=== PATIENT | female | born 2000 | race Caucasian/White ===

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

== ENCOUNTER 2019-02-17 02:16 | Inpatient (IN) | payer SELFPAY ==
[2019-02-17 03:31] LABS: Basophils % (Auto) 0.5 % (0.0-1.8); Eosinophils # (Auto) 0.3 K/mm3 (0.0-0.4); Eosinophils % (Auto) 4.1 % (0.0-4.3); Hematocrit 39.6 % (30.3-42.9); Hemoglobin 13.1 gm/dl (10.1-14.3); Lymphocytes # (Auto) 1.5 K/mm3 (1.2-5.4); Lymphocytes % (Auto) 18.5 % (13.4-35.0); Mean Corpuscular HGB Conc 33 % (30-34); Mean Corpuscular Volume 87 fl (79-97); Monocytes # (Auto) 0.9 K/mm3 (0.0-0.8); Monocytes % (Auto) 10.9 % (0.0-7.3); Platelet Count 221 K/mm3 (140-440); Red Blood Count 4.58 M/mm3 (3.65-5.03)
[2019-02-17 03:32] LABS: Bilirubin,Urine NEG (Negative); Blood,Urine NEG (Negative); Calcium Oxalate Crystals,Urine 3+; Color,Urine Yellow (Yellow); Mucus,Urine 3+ /HPF; Protein,Urine <15 mg/dL mg/dL (Negative); Urobilinogen,Urine < 2.0 mg/dL (<2.0)
[2019-02-17 03:54] LABS: Alanine Aminotransferase 8 units/L (7-56); Albumin 4.4 g/dL (3.9-5); BUN/Creatinine Ratio 10; Blood Urea Nitrogen 8 mg/dL (7-17); Calcium 8.6 mg/dL (8.4-10.2); Hemolysis Index 5
[2019-02-17] MEDS ORDERED: MORPHINE IV ONE (04:27)
[2019-02-17] MEDS ORDERED: ZOFRAN IV ONE (04:27)
--- NOTE | 2019-02-17 05:24 | Emergency Department Report ---
ED Abdominal Pain HPI - General Chief Complaint: Abdominal Pain Stated Complaint: ABD PAIN Time Seen by Provider: 02/17/19 04:15 Source: patient Mode of arrival: Ambulatory Limitations: No Limitations - History of Present Illness Initial Comments: Patient is a A1 18 yo AA female with no past medical history who presents to the ED with c/o acute onset persistent severe RLQ abdominal pain that radiates diffusely from the RLQ to the suprapubic and LLQ area with nausea and vomiting x 2 days, worse in the last 6 hours. Patient denies fever, chills, dizziness, diarrhea, dysuria, vaginal bleeding, vaginal discharge, low back pain, dyspareunia, headache, chest pain, vision changes or cough. MD Complaint: abdominal pain, other (nausea) -: Sudden, days(s) (2) Location: RLQ, suprapubic, R flank Radiation: LLQ, RLQ, suprapubic Severity scale (0 -10): 6 Quality: cramping, aching, sharp Improves With: nothing Worsens With: nothing Associated Symptoms: denies other symptoms, nausea. denies: vomiting, diarrhea, fever, chills, constipation, dysuria, hematemesis, hematochezia, melena, hematuria, anorexia, syncope - Related Data LMP Date: 02/04/19 Allergies Allergy/AdvReac Type Severity Reaction Status Date / Time No Known Allergies Allergy Unverified 12/24/16 13:43 ED Review of Systems ROS: Stated complaint: ABD PAIN Other details as noted in HPI Constitutional: denies: chills, fever Eyes: denies: eye pain, eye discharge, vision change ENT: denies: ear pain, throat pain Respiratory: denies: cough, shortness of breath, wheezing Cardiovascular: denies: chest pain, palpitations Endocrine: no symptoms reported Gastrointestinal: abdominal pain (lower abdomen), nausea, vomiting. denies: diarrhea Genitourinary: denies: urgency, dysuria, discharge Musculoskeletal: denies: back pain, joint swelling, arthralgia Skin: denies: rash, lesions Neurological: denies: headache, weakness, paresthesias Psychiatric: denies: anxiety, depression Hematological/Lymphatic: denies: easy bleeding, easy bruising ED Past Medical Hx - Past Medical History Previous Medical History?: Yes Hx Asthma: Yes - Surgical History Past Surgical History?: No - Social History Smoking Status: Never Smoker Substance Use Type: Marijuana ED Physical Exam - General Limitations: No Limitations General appearance: alert, in no apparent distress - Head Head exam: Present: atraumatic, normocephalic, normal inspection - Eye Eye exam: Present: normal appearance, PERRL, EOMI. Absent: scleral icterus, conjunctival injection, nystagmus, periorbital swelling, periorbital tenderness Pupils: Present: normal accommodation - ENT ENT exam: Present: normal exam, normal orophraynx, mucous membranes moist, TM's normal bilaterally, normal external ear exam - Neck Neck exam: Present: normal inspection, full ROM. Absent: tenderness, meningismus, lymphadenopathy, thyromegaly - Respiratory Respiratory exam: Present: normal lung sounds bilaterally. Absent: respiratory distress, wheezes, rales, rhonchi, stridor, chest wall tenderness, accessory muscle use, decreased breath sounds, prolonged expiratory - Cardiovascular Cardiovascular Exam: Present: regular rate, normal rhythm, normal heart sounds. Absent: systolic murmur, diastolic murmur, rubs, gallop - GI/Abdominal GI/Abdominal exam: Present: soft, tenderness (diffuse lower abdominal tenderness, no ), normal bowel sounds. Absent: guarding, rebound, hyperactive bowel sounds, hypoactive bowel sounds, organomegaly - Rectal Rectal exam: Present: deferred - Extremities Exam Extremities exam: Present: normal inspection, full ROM, normal capillary refill - Back Exam Back exam: Present: normal inspection, full ROM. Absent: tenderness, CVA tenderness (R), CVA tenderness (L), muscle spasm, paraspinal tenderness, vertebral tenderness - Neurological Exam Neurological exam: Present: alert, oriented X3, CN II-XII intact, normal gait, reflexes normal - Psychiatric Psychiatric exam: Present: normal affect, normal mood - Skin Skin exam: Present: warm, dry, intact, normal color. Absent: rash ED Course Vital Signs 02/17/19 02/17/19 02/17/19 02:25 02:40 04:24 Temperature 98.5 F 98.5 F 98.2 F Pulse Rate 86 86 63 Respiratory 18 18 16 Rate Blood Pressure 121/61 121/61 Blood Pressure 120/53 [Left] O2 Sat by Pulse 99 98 100 Oximetry - Reevaluation(s) Reevaluation #1: 02/17/19 06:51 Patient is alert and oriented 3 and is not in any distress. Lab test results are unremarkable. Patient was treated for pain and nausea in the ED and also received 1 L normal saline IV bolus. Abdomen: A CT scan with contrast shows an enhancing tubular structure in the right lower quadrant, suspected to be acute appendicitis. A small amount of free fluid is seen in the pelvis. On reevaluation, patient's pain is well controlled on medications. I paged and discussed with the general surgeon representative personal service Dr. Lemus at 0648 hrs, and he advised that the patient be admitted to the hospital by the hospitalist physician representative personal service, and at the [facility] consult and the patient later this morning. I also paged and discussed the patient's history, physical exam findings, laboratory results and imaging report with the hospitalist physician representative personal service Dr. Santillan admitted the patient to the hospital, but passed the patient over to the morning team to complete the admission process. Patient was started on Zosyn 3.375g IV awaiting the completion of the admission process. ED Medical Decision Making - Lab Data Result diagrams: 02/17/19 03:05 02/17/19 03:05 - Radiology Data Radiology results: report reviewed, image reviewed Abdomen-Pelvis CT scan w/contrast shows an enhancing tubular structure in the right lower quadrant that has the appearance of an abnormal appendix. There is also a small amount of free fluid seen in the pelvis. These findings are consistent with acute appendicitis. 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 Lab test results are unremarkable. Patient was treated for pain and nausea in the ED and also received 1 L normal saline IV bolus. Abdomen: A CT scan with contrast shows an enhancing tubular structure in the right lower quadrant, suspected to be acute appendicitis. A small amount of free fluid is seen in the pelvis. On reevaluation, patient's pain is well controlled on medications. I paged and discussed with the general surgeon representative personal service Dr. Lemus at 0648 hrs, and he advised that the patient be admitted to the hospital by the hospitalist physician representative personal service, and at the [facility] consult and the patient later this morning. I also paged and discussed the patient's history, physical exam findings, laboratory results and imaging report with the hospitalist physician representative personal service Dr. Santillan admitted the patient to the hospital, but passed the patient over to the morning team to complete the admission process. Patient was started on Zosyn 3.375g IV awaiting the completion of the admission process. - Differential Diagnosis acute appendicitis, kidney stones, acute PID, Ovarian cysts, Acute UTI Critical care attestation.: If time is entered above; I have spent that time in minutes in the direct care of this critically ill patient, excluding procedure time. ED Disposition Clinical Impression: Acute bilateral lower abdominal pain Acute appendicitis Qualifiers: Acute appendicitis type: unspecified acute appendicitis type Qualified Code(s): K35.80 - Unspecified acute appendicitis Disposition: OP ADMIT IP TO THIS HOSP Is pt being admited?: Yes Does the pt Need Aspirin: No Condition: Stable Instructions: Abdominal Pain (ED) Additional Instructions: Take medications with food, drink plenty of fluids and follow up with your Primary Care Physician or [facility] Interventionist Physician in 5-7 days for reevaluation. Return to the ED immediately if symptoms get worse. Time of Disposition: 06:56 Print Language: FAROESE
--- NOTE | 2019-02-17 06:09 | Cat Scan Report ---
CT abdomen pelvis w con INDICATION / CLINICAL INFORMATION: Pain in right lower abdomen for a few days. Worse tonight. Pain woke her from sleep. TECHNIQUE: All CT scans at this location are performed using CT dose reduction for ALARA by means of automated e xposure control. COMPARISON: None available. FINDINGS: Lower lungs are clear. ABDOMEN: The gallbladder is contracted. No biliary dilatation. The liver, spleen and pancreas are normal. Right kidney is normal. 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 No hydronephrosis. The small bowel is normal. Pelvis: There is an enhancing tubular structure in the right lower quadrant that has the appearance of an abn ormal appendix. A small amount of free fluid is seen in the pelvis. IMPRESSION: 1. Acute appendicitis. 2. Pelvic left kidney. Signer Name: Chin Sahni MD Signed: 02/17/2019 6:05 AM Workstation Name: [id number]
[2019-02-17] MEDS ORDERED: NACL 0.9% 1000 ML 1,000 ML IV ONE (06:29)
[2019-02-17] MEDS ORDERED: ZOSYN/NS 3.375GM/50ML 3.375 GM/50 ML BAG IV ONE (07:00)
[2019-02-17] MEDS ORDERED: ZOFRAN IV PRN (09:16)
--- NOTE | 2019-02-17 10:09 | Anesthesia Day of Surgery ---
Anesthesia Day of Surgery - Day of Surgery Patient Examined: Yes Patient H&P Reviewed: Yes Patient is NPO: Yes
--- NOTE | 2019-02-17 10:10 | Anesthesia Consultation ---
Anesthesia Consult and Med Hx Date of service: 02/17/19 - Airway Anesthetic Teeth Evaluation: Good, Partials ROM Head & Neck: Adequate Mental/Hyoid Distance: Adequate Mallampati Class: Class I Intubation Access Assessment: Good - Pre-Operative Health Status ASA Pre-Surgery Classification: ASA2, Emergency Proposed Anesthetic Plan: General - Pulmonary Hx Asthma: Yes (Inhaler PRN; last attack one year ago; Exercise-induced) COPD: No Hx Pneumonia: No - Endocrine Hx End Stage Renal Disease: No - Hematic Hx Sickle Cell Disease: No
[2019-02-17] MEDS ORDERED: TYLENOL PO NR (10:11)
--- NOTE | 2019-02-17 10:18 | Consultation ---
History of Present Illness Consult date: 02/17/19 Reason for consult: abdominal pain Requesting physician: SELINA MOSES Chief complaint: RLQ pain - History of present illness History of present illness: 18yo F presents to ED with 2 day history of RLQ pain, N/C. No F/V. Has been getting worse. Unable to tolerate diet. CT showed appendicitis. Gen Surg consulted for this issue. Past History Past Medical History: other (asthma) Past Surgical History: No surgical history Social history: single, other (marijuana). denies: alcohol abuse Family history: no significant family history Medications and Allergies Allergies Allergy/AdvReac Type Severity Reaction Status Date / Time No Known Allergies Allergy Unverified 12/24/16 13:43 Home Medications Medication Instructions Recorded Confirmed Last Taken Type No Known Home Medications [No 02/17/19 02/17/19 Unknown History Reported Home Medications] Active Meds: Active Medications Acetaminophen (Tylenol) 650 mg PO ONCE NR Stop: 02/17/19 16:00 Celecoxib (Celebrex) 200 mg PO PREOP NR Stop: 02/17/19 23:59 Fentanyl (Sublimaze) 50 mcg IV Q5MIN PRN PRN Reason: Pain , Severe (7-10) Gabapentin (Neurontin) 300 mg PO PREOP NR Stop: 02/17/19 23:59 Sodium Chloride (Nacl 0.9% 1000 Ml) 1,000 mls @ 100 mls/hr IV DIRECT MONIKA Ondansetron HCl (Zofran) 4 mg IV ONCE PRN PRN Reason: Nausea And Vomiting Review of Systems - Constitutional chills, no fever, no night sweats - Cardiovascular no chest pain, no shortness of breath - Respiratory no cough - Gastrointestinal abdominal pain, nausea, loss of appetite, dyspepsia/bloating, no vomiting, no change in bowel habits, no hematemesis, no coffee ground emesis, no BRBPR, no melena, no hematochezia - Muskuloskeletal no low back pain - Integumentary no rash, no sores, no wounds Exam Vital Signs Temp Pulse Resp BP Pulse Ox 98.5 F 86 18 121/61 99 02/17/19 02:25 02/17/19 02:25 02/17/19 02:25 02/17/19 02:25 02/17/19 02:25 - General physical appearance Positive: no distress, no pain, other (healthy appearing young female. pleasant) - Eyes Positive: normal occular movement - Respiratory Positive: normal expansion, normal respiratory effort, clear to auscultation - Cardiovascular Rhythm: regular - Abdomen Abdomen: Present: soft, tender (in RLQ. +mild Rovsing's), bowel sounds hypoa ctive. Absent: distended, guarding, rigid, wound, surgical scars - Integumentary no rash, no growths, no abnormal pigmentation - Neurologic Neurologic: alert and oriented to time, place and person, motor strength and sensation are grossly intact - Psychiatric Psychiatric: appropriate mood/affect, intact judgment & insight, cooperative Results - Labs 02/17/19 03:05 02/17/19 03:05 Abnormal lab results 02/17/19 Range/Units 03:05 RDW 13.0 L (13.2-15.2) % [place] % (Auto) 10.9 H (0.0-7.3) % [place] # 0.9 H (0.0-0.8) K/mm3 Diabetes panel 02/17/19 Range/Units 03:05 Sodium 140 (137-145) mmol/L Potassium 3.7 (3.6-5.0) mmol/L Chloride 103.4 (98-107) mmol/L Carbon Dioxide 27 (22-30) mmol/L BUN 8 (7-17) mg/dL Creatinine 0.8 (0.7-1.2) mg/dL Glucose 97 (65-100) mg/dL Calcium 8.6 (8.4-10.2) mg/dL AST 18 (5-40) units/L ALT 8 (7-56) units/L Alkaline Phosphatase 74 (35-129) units/L Total Protein 6.9 (6.3-8.2) g/dL Albumin 4.4 (3.9-5) g/dL Calcium panel 02/17/19 Range/Units 03:05 Calcium 8.6 (8.4-10.2) mg/dL Albumin 4.4 (3.9-5) g/dL Pituitary panel 02/17/19 Range/Units 03:05 Sodium 140 (137-145) mmol/L Potassium 3.7 (3.6-5.0) mmol/L Chloride 103.4 (98-107) mmol/L Carbon Dioxide 27 (22-30) mmol/L BUN 8 (7-17) mg/dL Creatinine 0.8 (0.7-1.2) mg/dL Glucose 97 (65-100) mg/dL Calcium 8.6 (8.4-10.2) mg/dL Adrenal panel 02/17/19 Range/Units 03:05 Sodium 140 (137-145) mmol/L Potassium 3.7 (3.6-5.0) mmol/L Chloride 103.4 (98-107) mmol/L Carbon Dioxide 27 (22-30) mmol/L BUN 8 (7-17) mg/dL Creatinine 0.8 (0.7-1.2) mg/dL Glucose 97 (65-100) mg/dL Calcium 8.6 (8.4-10.2) mg/dL Total Bilirubin 0.30 (0.1-1.2) mg/dL AST 18 (5-40) units/L ALT 8 (7-56) units/L Alkaline Phosphatase 74 (35-129) units/L Total Protein 6.9 (6.3-8.2) g/dL Albumin 4.4 (3.9-5) g/dL - Imaging CT scan - abdomen: report reviewed, image reviewed CT scan - pelvis: report reviewed, image reviewed Assessment and Plan - Patient Problems (1) Acute appendicitis Current Visit: Yes Status: Acute Qualifiers: Acute appendicitis type: unspecified acute appendicitis type Qualified Cod e(s): K35.80 - Unspecified acute appendicitis Plan to address problem: Pt stable. Exam, hx, and CT are consistent with appendicitis. Discussed surgical vs medical option. Pros and cons discussed. Pt elected surgical tx. Procedure, risks, benefits discussed. All questions answered. Consent obtained. Proceed to OR today. Please call with questions. time=30min
[2019-02-17] MEDS ORDERED: TYLENOL ONE (10:21)
[2019-02-17] MEDS ORDERED: NEURONTIN ONE (10:23)
[2019-02-17] MEDS ORDERED: DIPRIVAN 10 MG/ML IV ONE (10:40)
[2019-02-17] MEDS ORDERED: SUBLIMAZE ONE ×2 (10:42→12:16)
[2019-02-17] MEDS ORDERED: LACTATED RINGERS 0 ML ONE (10:47)
[2019-02-17] MEDS ORDERED: ZEMURON IV ONE (10:54)
[2019-02-17] MEDS ORDERED: XYLOCAINE 1%/ EPI 1:100,000 INFILTRATI ONE (10:58)
[2019-02-17] MEDS ORDERED: NEURONTIN PO NR (11:00)
[2019-02-17] MEDS ORDERED: XYLOCAINE 1% 20 mL INFILTRATI ONE (11:05)
[2019-02-17] MEDS ORDERED: MARCAINE-EPI 0.25%-1:200,000 INFILTRATI ONE (11:05)
[2019-02-17] MEDS ORDERED: ANCEF ONE (11:44)
--- NOTE | 2019-02-17 11:46 | Post Operative Note ---
Date of procedure: 02/17/19 (dictation:[id number]) Pre-op diagnosis: acute appendicitis Post-op diagnosis: same Findings: enlarged, mildly inflamed appendix. No evidence of perforation. surrounding organs normal Procedure: lap appy IVF 1700cc UOP 500cc EBL ~20cc Anesthesia: LETICIA Surgeon: KRIS HEARD Filling Mixer: LINDSAY MORA Estimated blood loss: minimal Pathology: list (appendix) Specimen disposition: to lab Condition: stable Disposition: PACU
--- NOTE | 2019-02-17 11:49 | History and Physical Report ---
History of Present Illness Date of examination: 02/17/19 Date of admission: 02/17/19 07:38 Chief complaint: abd pain History of present illness: Patient is a A1 18 yo AA female with no past medical history who presents to the ED with c/o acute onset persistent severe RLQ abdominal pain that radiates diffusely from the RLQ to the suprapubic and LLQ area with nausea and vomiting x 2 days, worse in the last 6 hours [facility]. Patient denied fever, chills, dizziness, diarrhea, dysuria, vaginal bleeding, vaginal discharge, low back pain, dyspareunia, headache, chest pain, vision changes or cough. Past History Past Medical History: other (asthma) Past Surgical History: No surgical history Social history: single, other (marijuana). denies: alcohol abuse Family history: no significant family history Medications and Allergies Allergies Allergy/AdvReac Type Severity Reaction Status Date / Time No Known Allergies Allergy Unverified 12/24/16 13:43 Home Medications Medication Instructions Recorded Confirmed Last Taken Type No Known Home Medications [No 02/17/19 02/17/19 Unknown History Reported Home Medications] Active Meds: Active Medications Acetaminophen (Tylenol) 650 mg PO ONCE NR Stop: 02/17/19 16:00 Last Admin: 02/17/19 10:24 Dose: 650 mg Documented by: Acetaminophen/Hydrocodone Bitart ([place] 5/325) 2 each PO Q6H PRN PRN Reason: Pain, Moderate (4-6) Celecoxib (Celebrex) 200 mg PO PREOP NR Stop: 02/17/19 23:59 Last Admin: 02/17/19 10:25 Dose: 200 mg Documented by: Fentanyl (Sublimaze) 50 mcg IV Q5MIN PRN PRN Reason: Pain , Severe (7-10) Gabapentin (Neurontin) 300 mg PO PREOP NR Stop: 02/17/19 23:59 Last Admin: 02/17/19 10:24 Dose: 300 mg Documented by: Sodium Chloride (Nacl 0.9% 1000 Ml) 1,000 mls @ 100 mls/hr IV DIRECT MONIKA Morphine Sulfate (Morphine) 2 mg IV Q3H PRN PRN Reason: Pain, Moderate (4-6) Ondansetron HCl (Zofran) 4 mg IV ONCE PRN PRN Reason: Nausea And Vomiting Review of Systems All systems: negative Exam - Constitutional Vitals: Temp Pulse Resp BP Pulse Ox 98.8 F 70 15 123/49 100 02/17/19 08:50 02/17/19 08:50 02/17/19 10:25 02/17/19 08:50 02/17/19 08:50 General appearance: Present: no acute distress, well-nourished - EENT Eyes: Present: PERRL ENT: hearing intact, clear oral mucosa - Neck Neck: Present: supple, normal ROM - Respiratory Respiratory effort: normal Respiratory: bilateral: CTA - Cardiovascular Heart Sounds: Present: S1 & S2. Absent: rub, click - Extremities Extremities: pulses symmetrical, No edema Peripheral Pulses: within normal limits - Abdominal General gastrointestinal: Present: soft, non-tender, tender, normal bowel sounds Localized gastrointestinal: tender: RLQ Female genitourinary: Present: normal - Integumentary Integumentary: Present: clear, warm, dry - Musculoskeletal Musculoskeletal: gait normal, strength equal bilaterally - Psychiatric Psychiatric: appropriate mood/affect, intact judgment & insight - Neurologic Neurologic: CNII-XII intact, moves all extremities Results - Labs CBC & Chem 7: 02/17/19 03:05 02/17/19 03:05 Labs: Laboratory Last Values WBC 8.3 K/mm3 (4.5-11.0) 02/17/19 03:05 RBC 4.58 M/mm3 (3.65-5.03) 02/17/19 03:05 Hgb 13.1 gm/dl (10.1-14.3) 02/17/19 03:05 Hct 39.6 % (30.3-42.9) 02/17/19 03:05 MCV 87 fl (79-97) 02/17/19 03:05 MCH 29 pg (28-32) 02/17/19 03:05 MCHC 33 % (30-34) 02/17/19 03:05 RDW 13.0 % (13.2-15.2) L 02/17/19 03:05 Plt Count 221 K/mm3 (140-440) 02/17/19 03:05 Lymph % (Auto) 18.5 % (13.4-35.0) 02/17/19 03:05 [place] % (Auto) 10.9 % (0.0-7.3) H 02/17/19 03:05 Eos % (Auto) 4.1 % (0.0-4.3) 02/17/19 03:05 Baso % (Auto) 0.5 % (0.0-1.8) 02/17/19 03:05 Lymph # 1.5 K/mm3 (1.2-5.4) 02/17/19 03:05 [place] # 0.9 K/mm3 (0.0-0.8) H 02/17/19 03:05 Eos # 0.3 K/mm3 (0.0-0.4) 02/17/19 03:05 Baso # 0.0 K/mm3 (0.0-0.1) 02/17/19 03:05 Seg Neutrophils % 66.0 % (40.0-70.0) 02/17/19 03:05 Seg Neutrophils # 5.5 K/mm3 (1.8-7.7) 02/17/19 03:05 Sodium 140 mmol/L (137-145) 02/17/19 03:05 Potassium 3.7 mmol/L (3.6-5.0) 02/17/19 03:05 Chloride 103.4 mmol/L (98-107) 02/17/19 03:05 Carbon Dioxide 27 mmol/L (22-30) 02/17/19 03:05 13 mmol/L 02/17/19 03:05 BUN 8 mg/dL (7-17) 02/17/19 03:05 0.8 mg/dL (0.7-1.2) 02/17/19 03:05 Estimated GFR > 60 ml/min 02/17/19 03:05 10 % 02/17/19 03:05 Glucose 97 mg/dL (65-100) 02/17/19 03:05 Calcium 8.6 mg/dL (8.4-10.2) 02/17/19 03:05 0.30 mg/dL (0.1-1.2) 02/17/19 03:05 AST 18 units/L (5-40) 02/17/19 03:05 ALT 8 units/L (7-56) 02/17/19 03:05 74 units/L (35-129) 02/17/19 03:05 6.9 g/dL (6.3-8.2) 02/17/19 03:05 4.4 g/dL (3.9-5) 02/17/19 03:05 1.8 % 02/17/19 03:05 HCG, Qual Negative (Negative) 02/17/19 04:35 Yellow (Yellow) 02/17/19 02:40 Slightly-cloudy (Clear) 02/17/19 02:40 6.0 (5.0-7.0) 02/17/19 02:40 Ur Specific [place] 1.018 (1.003-1.030) 02/17/19 02:40 <15 mg/dl mg/dL (Negative) 02/17/19 02:40 Neg mg/dL (Negative) 02/17/19 02:40 Tr mg/dL (Negative) 02/17/19 02:40 Neg (Negative) 02/17/19 02:40 Neg (Negative) 02/17/19 02:40 Neg (Negative) 02/17/19 02:40 < 2.0 mg/dL (<2.0) 02/17/19 02:40 Ur Leukocyte Esterase Neg (Negative) 02/17/19 02:40 2.0 /HPF (0.0-6.0) 02/17/19 02:40 4.0 /HPF (0.0-6.0) 02/17/19 02:40 U Epithel Cells (Auto) 3.0 /HPF (0-13.0) 02/17/19 02:40 Calcium Oxalate Crystal 3+ 02/17/19 02:40 3+ /HPF 02/17/19 02:40 Assessment and Plan Assessment and plan: Acute appendicitis. Exam, hx, and CT are consistent with appendicitis. Patient to the OR for surgery. Pain control postoperatively. Advance diet per surgery recommendations. Asthma. Stable.
[2019-02-17] MEDS ORDERED: LACTATED RINGERS 1,000 ML ONE (11:51)
[2019-02-17] MEDS ORDERED: XYLOCAINE MPF 2% ONE (11:51)
[2019-02-17] MEDS ORDERED: ZOFRAN ONE (12:00)
[2019-02-17] MEDS ORDERED: DECADRON ONE (12:00)
[2019-02-17] MEDS: SUBLIMAZE IV PRN ×2 (12:16→12:35)
[2019-02-17] MEDS: NACL 0.9% 1000 ML 1,000 ML IV SCH ×2 (13:24→20:21)
[2019-02-17] MEDS: MORPHINE IV PRN ×4 (14:09→23:36)
--- NOTE | 2019-02-17 16:25 | Post Anesthesia Evaluation ---
- Post Anesthesia Evaluation Patient Participated: Yes Airway Patent: Yes Stable Respiratory Function: Yes Nausea/Vomiting: No Temp > 96.8F: Yes Pain Manageable: Yes Adequeate Hydration: Yes Anesthesia Complications: No Block Receding Appropriately: Not Applicable Patient on Ventilator: No
--- NOTE | 2019-02-17 22:04 | Operative Report ---
PREOPERATIVE DIAGNOSIS: Acute appendicitis. POSTOPERATIVE DIAGNOSIS: Acute appendicitis. PROCEDURE: Laparoscopic appendectomy. ATTENDING SURGEON: Valencia Lemus M.D. DINING HOST: Dr. Beckman. ANESTHESIA: General. ESTIMATED BLOOD LOSS: Minimal, less than 20 mL. FLUIDS: 1700 mL. URINE OUTPUT: 500 mL. FINDINGS: Enlarged mildly inflamed appendix, no evidence of perforation. Surrounding bowel appeared completely normal. No other abnormalities were identified. SPECIMENS: Appendix. DRAINS: None. COMPLICATIONS: Stable, transferred to Recovery Room. INDICATIONS: This is a 18-year-old female who presented to the Emergency Room with 2-day history of abdominal pain, nausea and chills. Evaluation revealed evidence of acute appendicitis assessed by need for laparoscopic appendectomy. Procedure, risks and benefits were explained to the patient. Risks included but were not limited to infection, bleeding, pain, injury to surrounding structures, possible need for open surgery, possible need for further procedures in the future. The patient understood and consented. OPERATIVE NOTE: The patient was brought to the operating room and placed on the table in supine position. After adequate general anesthesia was established, the patient was prepped and draped in the usual sterile fashion. Antibiotics had been given. SCDs were in place. Time-out was called. I began by placing a Veress needle in the left upper quadrant. I was able to insufflate in the first attempt. Using an Optiview technique, I placed a 5 mm port in the left lower quadrant. I was able to enter the peritoneal cavity safely. There was no injury to the underlying structures. At the Veress needle site, there was some air that infiltrated under the omentum, but otherwise there was no evidence of any injury. Veress needle was removed. I placed a 12 mm port at the base of the umbilicus hoping to hide the incision there and then another 5 mm port in the suprapubic area in the midline. Both of these were done under direct vision. All sites had been anesthetized with 0.5% Marcaine and 1% lidocaine mix. We began by identifying the appendix. I took down the mesoappendix and the surrounding attachments with the LigaSure device. Once the base was completely dissected out, we transected it with a laparoscopic stapler using a blue load. The staple line was flushed with the cecum. There were 2 points of very minimal bleeding. I held pressure the there with gauze that eventually stopped. As a precaution, I placed Surgicel against this area in case there was any delayed bleeding. The rest of the area was completely clean. Specimen was placed in EndoCatch bag and removed from the umbilical port site. Gauze had been removed. We closed the umbilical port site with an 0 Vicryl stitch in a [id number] manner. The other 2 ports were removed. Abdomen was desufflated. Additional local was injected into all of the sites. Skin was closed with 4-0 Monocryl subcuticular stitches. Skin was cleaned and dried and Dermabond was placed. The patient tolerated the procedure well. There were no complications. All counts were correct at the end of the case. JOB# [id number] MATTHIAS/MARINO
[2019-02-18] MEDS: NORCO 5/325 PO PRN ×3 (04:35→17:16)
[2019-02-18 05:13] LABS: Basophils % (Auto) 0.2 % (0.0-1.8); Eosinophils # (Auto) 0.1 K/mm3 (0.0-0.4); Eosinophils % (Auto) 0.6 % (0.0-4.3); Hemoglobin 12.3 gm/dl (10.1-14.3); Lymphocytes # (Auto) 1.7 K/mm3 (1.2-5.4); Lymphocytes % (Auto) 17.8 % (13.4-35.0); Mean Corpuscular HGB Conc 33 % (30-34); Mean Corpuscular Volume 87 fl (79-97); Monocytes # (Auto) 1.2 K/mm3 (0.0-0.8); Monocytes % (Auto) 12.1 % (0.0-7.3); Platelet Count 212 K/mm3 (140-440); Red Blood Count 4.27 M/mm3 (3.65-5.03); Red Cell Distribution Width 12.9 % (13.2-15.2)
[2019-02-18 05:25] LABS: BUN/Creatinine Ratio 4; Blood Urea Nitrogen 3 mg/dL (7-17); Calcium 8.4 mg/dL (8.4-10.2); Hemolysis Index 2
--- NOTE | 2019-02-18 10:36 | Progress Note ---
Assessment and Plan Assessment and plan: Acute appendicitis. Patient status post appendectomy yesterday. Findings were enlarged, mildly inflamed appendix. No evidence of perforation. Surrounding organs normal. Advance diet per surgery recommendations. Patient still complaining of significant right lower quadrant pain. Asthma. Stable. History Interval history: No new issues overnight. Patient still complaining of prominent right lower quadrant abdominal pain Hospitalist Physical - Constitutional Vitals: Temp Pulse Resp BP Pulse Ox 97.9 F 77 18 108/45 98 02/18/19 07:53 02/18/19 07:53 02/18/19 07:53 02/18/19 07:53 02/18/19 07:53 General appearance: Present: no acute distress, well-nourished - EENT Eyes: Present: PERRL, EOM intact ENT: hearing intact, clear oral mucosa, dentition normal - Neck Neck: Present: supple, normal ROM - Respiratory Respiratory effort: normal Respiratory: bilateral: CTA - Cardiovascular Rhythm: regular Heart Sounds: Present: S1 & S2. Absent: gallop, rub - Extremities Extremities: no ischemia, No edema, Full ROM - Abdominal General gastrointestinal: soft, tender, non-distended, normal bowel sounds Localized gastrointestinal: tender: RLQ - Integumentary Integumentary: Present: clear, warm, dry - Neurologic Neurologic: CNII-XII intact, moves all extremities Results - Labs CBC & Chem 7: 02/18/19 04:10 02/18/19 04:10 Labs: Laboratory Last Values WBC 9.5 K/mm3 (4.5-11.0) 02/18/19 04:10 RBC 4.27 M/mm3 (3.65-5.03) 02/18/19 04:10 Hgb 12.3 gm/dl (10.1-14.3) 02/18/19 04:10 Hct 37.0 % (30.3-42.9) 02/18/19 04:10 MCV 87 fl (79-97) 02/18/19 04:10 MCH 29 pg (28-32) 02/18/19 04:10 MCHC 33 % (30-34) 02/18/19 04:10 RDW 12.9 % (13.2-15.2) L 02/18/19 04:10 Plt Count 212 K/mm3 (140-440) 02/18/19 04:10 Lymph % (Auto) 17.8 % (13.4-35.0) 02/18/19 04:10 [place] % (Auto) 12.1 % (0.0-7.3) H 02/18/19 04:10 Eos % (Auto) 0.6 % (0.0-4.3) 02/18/19 04:10 Baso % (Auto) 0.2 % (0.0-1.8) 02/18/19 04:10 Lymph # 1.7 K/mm3 (1.2-5.4) 02/18/19 04:10 [place] # 1.2 K/mm3 (0.0-0.8) H 02/18/19 04:10 Eos # 0.1 K/mm3 (0.0-0.4) 02/18/19 04:10 Baso # 0.0 K/mm3 (0.0-0.1) 02/18/19 04:10 Seg Neutrophils % 69.3 % (40.0-70.0) 02/18/19 04:10 Seg Neutrophils # 6.6 K/mm3 (1.8-7.7) 02/18/19 04:10 Sodium 142 mmol/L (137-145) 02/18/19 04:10 Potassium 3.9 mmol/L (3.6-5.0) 02/18/19 04:10 Chloride 108.0 mmol/L (98-107) H 02/18/19 04:10 Carbon Dioxide 26 mmol/L (22-30) 02/18/19 04:10 12 mmol/L 02/18/19 04:10 BUN 3 mg/dL (7-17) L 02/18/19 04:10 0.7 mg/dL (0.7-1.2) 02/18/19 04:10 Estimated GFR > 60 ml/min 02/18/19 04:10 4 % 02/18/19 04:10 Glucose 103 mg/dL (65-100) H 02/18/19 04:10 Calcium 8.4 mg/dL (8.4-10.2) 02/18/19 04:10 0.30 mg/dL (0.1-1.2) 02/17/19 03:05 AST 18 units/L (5-40) 02/17/19 03:05 ALT 8 units/L (7-56) 02/17/19 03:05 74 units/L (35-129) 02/17/19 03:05 6.9 g/dL (6.3-8.2) 02/17/19 03:05 4.4 g/dL (3.9-5) 02/17/19 03:05 1.8 % 02/17/19 03:05 HCG, Qual Negative (Negative) 02/17/19 04:35 Yellow (Yellow) 02/17/19 02:40 Slightly-cloudy (Clear) 02/17/19 02:40 6.0 (5.0-7.0) 02/17/19 02:40 Ur Specific [place] 1.018 (1.003-1.030) 02/17/19 02:40 <15 mg/dl mg/dL (Negative) 02/17/19 02:40 Neg mg/dL (Negative) 02/17/19 02:40 Tr mg/dL (Negative) 02/17/19 02:40 Neg (Negative) 02/17/19 02:40 Neg (Negative) 02/17/19 02:40 Neg (Negative) 02/17/19 02:40 < 2.0 mg/dL (<2.0) 02/17/19 02:40 Ur Leukocyte Esterase Neg (Negative) 02/17/19 02:40 2.0 /HPF (0.0-6.0) 02/17/19 02:40 4.0 /HPF (0.0-6.0) 02/17/19 02:40 U Epithel Cells (Auto) 3.0 /HPF (0-13.0) 02/17/19 02:40 Calcium Oxalate Crystal 3+ 02/17/19 02:40 3+ /HPF 02/17/19 02:40 Active Medications - Current Medications Current Medications: Generic Name Dose Route Start Last Admin Trade Name Freq PRN Reason Stop Dose Admin Acetaminophen/Hydrocodone Bitart 2 each 02/17/19 11:43 02/18/19 04:35 [place] 5/325 PO 2 each Q6H PRN Administration Pain, Moderate (4-6) Fentanyl 50 mcg 02/17/19 09:16 02/17/19 12:35 Sublimaze IV 50 mcg Q5MIN PRN Administration Pain , Severe (7-10) Sodium Chloride 1,000 mls @ 100 mls/hr 02/17/19 07:00 02/17/19 20:21 Nacl 0.9% 1000 Ml IV 100 mls/hr DIRECT MONIKA Administration Morphine Sulfate 2 mg 02/17/19 11:44 02/17/19 23:36 Morphine IV 2 mg Q3H PRN Administration Pain, Moderate (4-6) Ondansetron HCl 4 mg 02/17/19 09:16 Zofran IV ONCE PRN Nausea And Vomiting
--- NOTE | 2019-02-18 14:12 | Progress Note ---
Assessment and Plan - Patient Problems (1) Acute appendicitis Current Visit: Yes Status: Acute Qualifiers: Acute appendicitis type: unspecified acute appendicitis type Qualified Code(s): K35.80 - Unspecified acute appendicitis Plan to address problem: Pt stable. s/p lap appy - 02/17/19 - POD#1. Doing well. No issues. Ok to d/c home Rec: 1) diet as tolerated 2) no heavy lifting or strenuous activity 3) May shower today. Pat dry wounds. 4) f/u in 2 weeks. 5) no need for Abx at home. Please call with questions. Subjective Date of service: 02/18/19 Patient Reports: Positive: feels better, pain is less, tolerating a regular diet. Negative: nausea, vomiting Objective Vital Signs - 12hr 02/18/19 02/18/19 02/18/19 04:35 04:43 07:53 Temperature 97.5 F L 97.9 F Pulse Rate 70 77 Respiratory 18 18 18 Rate Blood Pressure 123/69 108/45 O2 Sat by Pulse 99 98 Oximetry 02/18/19 12:30 Temperature 98.2 F Pulse Rate 102 H Respiratory 18 Rate Blood Pressure 115/77 O2 Sat by Pulse 98 Oximetry - General physical appearance no distress, no pain, other (looks well) - Respiratory normal expansion, normal respiratory effort - Abdomen soft, not guarding, not rigid, surgical scars (C/D/I. minimal old blood at umbo incision. ) - Integumentary no rash, no growths, no abnormal pigmentation - Psychiatric oriented to time, oriented to person, oriented to place, speech is normal, memory intact - Labs 02/18/19 04:10 02/18/19 04:10 Diabetes panel 02/18/19 Range/Units 04:10 Sodium 142 (137-145) mmol/L Potassium 3.9 (3.6-5.0) mmol/L Chloride 108.0 H (98-107) mmol/L Carbon Dioxide 26 (22-30) mmol/L BUN 3 L (7-17) mg/dL Creatinine 0.7 (0.7-1.2) mg/dL Glucose 103 H (65-100) mg/dL Calcium 8.4 (8.4-10.2) mg/dL Calcium panel 02/18/19 Range/Units 04:10 Calcium 8.4 (8.4-10.2) mg/dL Pituitary panel 02/18/19 Range/Units 04:10 Sodium 142 (137-145) mmol/L Potassium 3.9 (3.6-5.0) mmol/L Chloride 108.0 H (98-107) mmol/L Carbon Dioxide 26 (22-30) mmol/L BUN 3 L (7-17) mg/dL Creatinine 0.7 (0.7-1.2) mg/dL Glucose 103 H (65-100) mg/dL Calcium 8.4 (8.4-10.2) mg/dL Adrenal panel 02/18/19 Range/Units 04:10 Sodium 142 (137-145) mmol/L Potassium 3.9 (3.6-5.0) mmol/L Chloride 108.0 H (98-107) mmol/L Carbon Dioxide 26 (22-30) mmol/L BUN 3 L (7-17) mg/dL Creatinine 0.7 (0.7-1.2) mg/dL Glucose 103 H (65-100) mg/dL Calcium 8.4 (8.4-10.2) mg/dL
--- NOTE | 2019-02-18 17:01 | Discharge Summary ---
Providers - Providers Date of Admission: 02/17/19 07:38 Date of discharge: 02/18/19 Attending physician: REDD CARVALHO 02/17/19 06:48 Consult to Physician [CONS] Routine Comment: Consulting Provider: KRIS HEARD Physician Instructions: Keep NPO, Hospitalist to admit; Surgeon to consult Reason For Exam: Acuet appendicitis [facility] Reason for admission: abdominal pain Condition: Stable Pertinent studies: Ct abd/pel Procedures: [facility] Hospital course: uneventful. Went for surgery on day of admission. Disposition: DC-01 TO HOME OR SELFCARE Time spent for discharge: 30min - Discharge Diagnoses (1) Acute appendicitis Status: Acute Qualifiers: Acute appendicitis type: unspecified acute appendicitis type Qualified Code(s): K35.80 - Unspecified acute appendicitis Core Measure Documentation - Palliative Care Palliative Care/ Comfort Measures: Not Applicable - Core Measures Any of the following diagnoses?: none - VTE Discharge Requirements Deep Vein Thrombosis/Pulmonary Embolism Present on Admission: No Exam - Constitutional Vitals: Temp Pulse Resp BP Pulse Ox 98.2 F 102 H 18 115/77 98 02/18/19 12:30 02/18/19 12:30 02/18/19 12:30 02/18/19 12:30 02/18/19 12:30 General appearance: Present: no acute distress - EENT Eyes: Present: EOM intact - Respiratory Respiratory effort: normal - Cardiovascular Rhythm: regular - Abdominal General gastrointestinal: Present: soft, tender (at incisions only), other (incisions C/D/I). Absent: distended - Integumentary Integumentary: Present: clear, warm, dry - Psychiatric Psychiatric: appropriate mood/affect, intact judgment & insight, cooperative Plan Diet: regular Wound: open to air, keep clean and dry Special Instructions: no heavy lifting Additional Instructions: Post Operative Instructions. No driving until cleared by surgeon. May shower today. Pat dry the wound or wounds. Apply an ice pack to the wound or wounds for 10-20 minutes at a time. Do this at least 4-5 times a day. You can do it more if he would like. Alternate the use of ibuprofen and Tylenol for the first 2 days. I want you to take these on a scheduled basis. Take 600 mg of ibuprofen every 6 hours. Take 500 mg of Tylenol every 6 hours. You should alternate these 2 medicines. In other words, beginning with the ibuprofen. After 3 hours, take the Tylenol. Keep alternating the 2 drugs every 3 hours. Do this on a scheduled basis for the first 2 days. After that, you can take them as needed. It is very important that you use the prescription pain medicine only for very severe pain. Do not take the prescription medicine before you try using the ibuprofen and Tylenol. We will call you in a couple of days to see how youre doing. If you have any questions or concerns, always feel free to call the clinic at any time. [facility] [Primary Care Provider] - 7 Days KRIS HEARD MD [Staff Physician] - 14 Days Prescriptions: HYDROcodone/APAP 5-325 [[place] 5-325 mg TAB] 2 each PO Q6H PRN #30 tablet PRN Reason: Pain , Severe (7-10)
[2019-02-18 17:25] VITALS: BP 124/63
== END 2019-02-18 18:24 | disposition home or self-care (01) | DRG 343 ==
LOC: ED 02:16 → 3B-SURG 07:38
PROVIDERS: ADMIT Hospitalist; ATTEND Hospitalist
PROC: 0DTJ4ZZ Resection of Appendix, Percutaneous Endoscopic Approach (ICD-10-PCS; principal; 2019-02-17)
DX: K35.80 Unspecified acute appendicitis (principal); J45.909 Unspecified asthma, uncomplicated; F12.90 Cannabis use, unspecified, uncomplicated
CPT/HCPCS: 36415; 74177; 80048; 80053; 81001; 84703; 85025; 88304; G0378; J0690; J1100; J2270; J2405; J2543; J2704; J3010; J7030; J7120; Q9967

== ENCOUNTER 2019-07-01 11:52 | Emergency (ER) | payer SELFPAY ==
[2019-07-01 11:56] VITALS: BP 130/56
--- NOTE | 2019-07-01 12:03 | Event Note ---
ED Screening Note ED Screening Note: PMHx asthma- neb machine and albuterol no fever chest tightness, states she has chest discomfort with movement states she has SOB no productive cough This initial assessment/diagnostic orders/clinical plan/treatment(s) is/are subject to change based on patients health status, clinical progression and re- assessment by fellow clinical providers in the ED. Further treatment and workup at subsequent clinical providers discretion. Patient/guardian urged not to elope from the ED as their condition may be serious if not clinically assessed and managed.
--- NOTE | 2019-07-01 13:42 | XRay Report ---
CHEST 2 VIEWS INDICATION: Cough, chest pain. COMPARISON: None FINDINGS: Support devices: None. Heart: Within normal limits. Lungs/pleura: No acute air space or interstitial disease. No pneumothorax. Additional findings: None. IMPRESSION: Unremarkable chest films. Signer Name: Gene Marcos Jr, MD Signed: 07/01/2019 1:37 PM Workstation Name: [id number]
--- NOTE | 2019-07-01 14:10 | Emergency Department Report ---
ED Chest Pain HPI - General Chief Complaint: Chest Pain Stated Complaint: CHEST PAIN/SOB Time Seen by Provider: 07/01/19 12:01 Source: patient Mode of arrival: Ambulatory Limitations: No Limitations - History of Present Illness Initial Comments: This is a 18-year-old female nontoxic, well nourished in appearance, no acute signs of distress presents to the ED with c/o of midsternum chest pain and has SOB during pain episode. Patient denies any radiation of pain. Patient describes pain as aching that is aggravated with movement and palpation and res olved with rest. Patient denies any upper respiratory symptoms. Patient denies any hemoptysis, fever, chills, nausea, vomiting, headache, stiff neck, numbness, tingling, abdominal pain. Patient denies pleuritic chest pain. Patient denies any recent travels or long car rides. Patient denies any recent surgeries or any sick contacts. Patient denies any drug allergies or PMH. MD Complaint: chest pain -: This morning Pain Location: other (midsternum) Pain Radiation: none Severity: mild Severity scale (0 -10): 3 Quality: aching, other (cramping) Consistency: intermittent Improves With: rest Worsens With: palpation, movement re: denies: nausea, vomting, diaphoresis, dyspnea, sense of impending doom Other Symptoms: denies: cough, fever, syncope, rash, acid taste in mouth, leg swelling, palpitations, burping Treatments Prior to Arrival: none Aspirin use within the Past 7 Days: (0) No - Related Data On Oral Contraceptives: No Previous Rx's Medication Instructions Recorded Last Taken Type HYDROcodone/APAP 5-325 [[place] 2 each PO Q6H PRN #30 tablet 02/18/19 Unknown Rx 5-325 mg TAB] Naproxen 500 mg PO Q8H PRN #20 tablet 07/01/19 Unknown Rx Allergies Allergy/AdvReac Type Severity Reaction Status Date / Time No Known Allergies Allergy Verified 07/01/19 12:03 Heart Score - HEART Score History: Slightly suspicious EKG: Normal Age: < 45 Risk factors: No known risk factors Troponin: < normal limit HEART Score: 0 ED Review of Systems ROS: Stated complaint: CHEST PAIN/SOB Other details as noted in HPI Constitutional: denies: chills, fever Eyes: denies: eye pain, eye discharge, vision change ENT: denies: ear pain, throat pain Respiratory: shortness of breath. denies: cough, wheezing Cardiovascular: chest pain. denies: palpitations Endocrine: no symptoms reported Gastrointestinal: denies: abdominal pain, nausea, diarrhea Genitourinary: denies: urgency, dysuria, discharge Musculoskeletal: denies: back pain, joint swelling, arthralgia Skin: denies: rash, lesions Neurological: denies: headache, weakness, paresthesias Psychiatric: denies: anxiety, depression Hematological/Lymphatic: denies: easy bleeding, easy bruising ED Past Medical Hx - Past Medical History Hx Congestive Heart Failure: No Hx Diabetes: No Hx Sickle Cell Disease: No Hx Asthma: Yes Hx COPD: No Hx HIV: No Additional medical history: PNEUMONIA - Surgical History Past Surgical History?: No - Social History Smoking Status: Current Every Day Smoker Substance Use Type: Marijuana - Medications Home Medications: Home Medications Medication Instructions Recorded Confirmed Last Taken Type HYDROcodone/APAP 5-325 [[place] 2 each PO Q6H PRN #30 tablet 02/18/19 Unknown Rx 5-325 mg TAB] Naproxen 500 mg PO Q8H PRN #20 tablet 07/01/19 Unknown Rx ED Physical Exam - General Limitations: No Limitations General appearance: alert, in no apparent distress - Head Head exam: Present: atraumatic, normocephalic - Eye Eye exam: Present: normal appearance - Neck Neck exam: Present: normal inspection, full ROM. Absent: tenderness, meningismus, lymphadenopathy - Respiratory Respiratory exam: Present: normal lung sounds bilaterally, chest wall tenderness. Absent: respiratory distress, wheezes, rales, rhonchi, stridor, accessory muscle use, decreased breath sounds, prolonged expiratory - Cardiovascular Cardiovascular Exam: Present: regular rate, normal rhythm, normal heart sounds. Absent: bradycardia, tachycardia, irregular rhythm, systolic murmur, diastolic murmur, rubs, gallop - Extremities Exam Extremities exam: Present: normal inspection, full ROM - Back Exam Back exam: Present: normal inspection, full ROM - Neurological Exam Neurological exam: Present: alert, oriented X3, normal gait - Psychiatric Psychiatric exam: Present: normal affect, normal mood - Skin Skin exam: Present: warm, dry, intact, normal color. Absent: rash ED Course Vital Signs 07/01/19 11:56 Temperature 97.8 F Pulse Rate 80 Respiratory 18 Rate Blood Pressure 130/56 [Right] O2 Sat by Pulse 100 Oximetry - Reevaluation(s) Reevaluation #1: 07/01/19 14:15 Patient is speaking in full sentences with no signs of distress noted. SEAN score - Sean Score Age > 65: (0) No Aspirin use within the Past 7 Days: (0) No 3 or more CAD Risk Factors: (0) No 2 or more Angina events in past 24 hrs: (0) No Known CAD with more than 50% Stenosis: (0) No Elevated Cardiac Markers: (0) No ST Deviation Greater than 0.5mm: (0) No SEAN Score: 0 ED Medical Decision Making - Lab Data Result diagrams: 07/01/19 13:48 07/01/19 13:48 - Medical Decision Making This is a 18-year-old female that presents with costochondritis. Patient is stable and was examined by me. SEAN and HEART score 0 pints. Wells criteria for DVT/SVT/PE 0 points. EKG normal sinus rhythm with no significant changes in ST. Chest xray dictated by the radiologist. PAtient is notified of the Xray report with no questions noted. Labs within normal limits. Negative troponin. Patient received Shirley and Prednisone in the ED which she stated his symptoms are improving subsided. Patient stated family member will drive the patient home after discharge due to possible drowsiness. I will discharge patient with Naproxen. Patient was instructed to Follow-up with a primary care/padded products inspector trimmer doctor in 2 days or if symptoms worsen and continue return to emergency room as soon as possible. At time of discharge, the patient does not seem toxic or ill in appearance. No acute signs of distress noted. Patient agrees to discharge treatment plan of care. No further questions noted by the patient. Critical care attestation.: If time is entered above; I have spent that time in minutes in the direct care of this critically ill patient, excluding procedure time. ED Disposition Clinical Impression: Costochondritis Disposition: DC-01 TO HOME OR SELFCARE Is pt being admited?: No Does the pt Need Aspirin: No Condition: Stable Instructions: Costochondritis (ED) Additional Instructions: Follow-up with a primary care/padded products inspector trimmer doctor in 2 days or if symptoms worsen and continue return to emergency room as soon as possible. Prescriptions: Naproxen 500 mg PO Q8H PRN #20 tablet PRN Reason: Pain, Moderate (4-6) Referrals: PRIMARY CAREMD [Primary Care Provider] - 3-5 Days ANANYA GOYAL MD [Staff Physician] - 3-5 Days [facility] [Outside] - 3-5 Days [facility] [Outside] - 3-5 Days PHUONG RIBEIRO MD [Staff Physician] - 07/03/19 Forms: Work/School Release Form(ED)
[2019-07-01] MEDS ORDERED: predniSONE 20 MG TAB PO ONE (14:16)
[2019-07-01] MEDS ORDERED: HYDROcodone/ACETAMINOPHEN 10-325MG TAB PO ONE (14:16)
[2019-07-01 14:33] LABS: Basophils % (Auto) 0.9 % (0.0-1.8); Eosinophils # (Auto) 0.2 K/mm3 (0.0-0.4); Eosinophils % (Auto) 4.1 % (0.0-4.3); Hematocrit 37.6 % (30.3-42.9); Hemoglobin 12.5 gm/dl (10.1-14.3); Lymphocytes # (Auto) 2.3 K/mm3 (1.2-5.4); Lymphocytes % (Auto) 46.2 % (13.4-35.0); Mean Corpuscular HGB Conc 33 % (30-34); Mean Corpuscular Volume 86 fl (79-97); Monocytes # (Auto) 0.5 K/mm3 (0.0-0.8); Monocytes % (Auto) 9.9 % (0.0-7.3); Platelet Count 203 K/mm3 (140-440); Red Blood Count 4.36 M/mm3 (3.65-5.03); Red Cell Distribution Width 13.2 % (13.2-15.2)
[2019-07-01 14:42] LABS: INR 1.1 (0.87-1.13)
[2019-07-01 14:43] LABS: Partial Thromboplastin Time 27.3 Sec. (24.2-36.6)
[2019-07-01 14:54] LABS: Alanine Aminotransferase 12 units/L (7-56); Albumin 4.4 g/dL (3.9-5); BUN/Creatinine Ratio 10; Blood Urea Nitrogen 7 mg/dL (7-17); Calcium 8.9 mg/dL (8.4-10.2); Hemolysis Index 3
[2019-07-01 15:27] LABS: Mucus,Urine FEW /HPF
[2019-07-01 15:28] LABS: Color,Urine Yellow (Yellow); PH,Urine 6.5 (5.0-7.0); Urobilinogen,Urine < 2.0 mg/dL (<2.0)
[2019-07-01 15:29] LABS: Ictotest,Urine Negative (Negative)
== END 2019-07-01 15:44 | disposition home or self-care (01) ==
LOC: ED 11:52
DX: M94.0 Chondrocostal junction syndrome [Tietze] (principal); J45.909 Unspecified asthma, uncomplicated; F17.200 Nicotine dependence, unspecified, uncomplicated; F12.10 Cannabis abuse, uncomplicated
CPT/HCPCS: 36415; 71046; 80053; 81001; 84484; 84703; 85025; 85610; 85730; 93005; 93010; 99284; J7512

== ENCOUNTER 2020-09-05 10:30 | Emergency (ER) | payer OTHER ==
--- NOTE | 2020-09-05 10:54 | Emergency Department Report ---
ED Female HPI - General Chief complaint: Abdominal Pain Stated complaint: ABD PAIN/CRAMPS Time Seen by Provider: 09/05/20 10:46 Source: patient Mode of arrival: Ambulatory Limitations: No Limitations - History of Present Illness Initial comments: 19-year-old -[place] female presents to the emergency room for lower abdominal cramping for 2 days. Patient reports she has been taking pain medication without much relief. She did take Tylenol this morning. Patient reports some nausea but no vomiting currently on no control has had unpr otected intercourse. Patient reports that she has had some vaginal bleeding and vaginal discharge. Denies fever chills or diarrhea or constipation. Patient reports chest pain a little today. MD Complaint: vaginal bleeding, vaginal discharge Onset/Timin -: days(s) Location: suprapubic Severity scale (0 -10): 5 Quality: cramping Consistency: intermittent Improves with: medication Worsens with: none Are you Now?: No Last Menstrual Period: 08/10/20 EDC: 05/17/21 Associated Symptoms: vaginal discharge, vaginal bleeding, nausea/vomiting. denies: fever/chills, dysuria - Related Data Sexually active: Yes Previous Rx's Medication Instructions Recorded Last Taken Type HYDROcodone/APAP 5-325 [[place] 2 each PO Q6H PRN #30 tablet 02/18/19 Unknown Rx 5-325 mg TAB] Naproxen 500 mg PO Q8H PRN #20 tablet 07/01/19 Unknown Rx Allergies Allergy/AdvReac Type Severity Reaction Status Date / Time No Known Allergies Allergy Verified 07/01/19 12:03 ED Review of Systems ROS: Stated complaint: ABD PAIN/CRAMPS Other details as noted in HPI Comment: All other systems reviewed and negative ED Past Medical Hx - Past Medical History Previous Medical History?: Yes Hx Congestive Heart Failure: No Hx Diabetes: No Hx Sickle Cell Disease: No Hx Asthma: Yes Hx COPD: No Hx HIV: No Additional medical history: PNEUMONIA - Surgical History Past Surgical History?: Yes Hx Appendectomy: Yes - Social History Smoking Status: Current Every Day Smoker Substance Use Type: Alcohol - Medications Home Medications: Home Medications Medication Instructions Recorded Confirmed Last Taken Type HYDROcodone/APAP 5-325 [[place] 2 each PO Q6H PRN #30 tablet 02/18/19 Unknown Rx 5-325 mg TAB] Naproxen 500 mg PO Q8H PRN #20 tablet 07/01/19 Unknown Rx ED Physical Exam - General Limitations: No Limitations General appearance: alert, in no apparent distress - Head Head exam: Present: atraumatic, normocephalic - Eye Eye exam: Present: normal appearance - ENT ENT exam: Present: mucous membranes moist - Neck Neck exam: Present: normal inspection - Respiratory Respiratory exam: Present: normal lung sounds bilaterally. Absent: respiratory distress - Cardiovascular Cardiovascular Exam: Present: regular rate, normal rhythm. Absent: systolic murmur, diastolic murmur, rubs, gallop - GI/Abdominal GI/Abdominal exam: Present: soft, tenderness (suprapubic), normal bowel sounds - Extremities Exam Extremities exam: Present: normal inspection - Back Exam Back exam: Present: normal inspection - Neurological Exam Neurological exam: Present: alert, oriented X3 - Psychiatric Psychiatric exam: Present: normal affect, normal mood - Skin Skin exam: Present: warm, dry, intact, normal color. Absent: rash ED Course Vital Signs 09/05/20 10:40 Temperature 98.5 F Pulse Rate 101 H Respiratory 16 Rate Blood Pressure 136/76 O2 Sat by Pulse 99 Oximetry ED Medical Decision Making - Lab Data Result diagrams: 09/05/20 11:49 09/05/20 11:49 - Medical Decision Making 19-year-old -[place] female presents to the emergency room for lower abdominal cramping for 2 days. Patient reports she has been taking pain medication without much relief. She did take Tylenol this morning. Patient reports some nausea but no vomiting currently on no control has had unprotected intercourse. Patient reports that she has had some vaginal bleeding and vaginal discharge. Denies fever chills or diarrhea or constipation. Patient reports chest pain a little today. Urinalysis and serum hCG Critical care attestation.: If time is entered above; I have spent that time in minutes in the direct care of this critically ill patient, excluding procedure time. ED Disposition Clinical Impression: Pelvic cramping Disposition: -01 TO HOME OR SELFCARE Is pt being admited?: No Does the pt Need Aspirin: No Condition: Stable Instructions: Abdominal Pain (ED), Pain Without a Known Cause Additional Instructions: All labs and studies are within normal limits. I recommend ibuprofen or Tylenol. Follow-up with your primary care provider. Try to only use Tylenol maximum dose 4 g/day. Ibuprofen 600 mg every 6-8 hours. Increase your water intake. Referrals: [facility] [Provider Group] - 3-5 Days Forms: Work/School Release Form(ED)
[2020-09-05 11:04] LABS: Bilirubin,Urine NEG (Negative); Blood,Urine SM (Negative); Color,Urine Yellow (Yellow); Mucus,Urine FEW /HPF; Urobilinogen,Urine < 2.0 mg/dL (<2.0); WBC,Urine < 1.0 /HPF (0.0-6.0)
[2020-09-05 11:08] LABS: RBC,Urine < 1.0 /HPF (0.0-6.0)
[2020-09-05 11:57] LABS: Basophils % (Auto) 0.9 % (0.0-1.8); Eosinophils # (Auto) 0.2 K/mm3 (0.0-0.4); Hematocrit 40.3 % (30.3-42.9); Hemoglobin 13.2 gm/dl (10.1-14.3); Lymphocytes # (Auto) 1.3 K/mm3 (1.2-5.4); Lymphocytes % (Auto) 30.6 % (13.4-35.0); Mean Corpuscular HGB Conc 33 % (30-34); Mean Corpuscular Volume 89 fl (79-97); Monocytes # (Auto) 0.4 K/mm3 (0.0-0.8); Monocytes % (Auto) 10.5 % (0.0-7.3); Platelet Count 230 K/mm3 (140-440); Red Blood Count 4.55 M/mm3 (3.65-5.03); Red Cell Distribution Width 13.6 % (13.2-15.2)
[2020-09-05 12:21] LABS: Alanine Aminotransferase 10 units/L (7-56); Albumin 4.6 g/dL (3.9-5); BUN/Creatinine Ratio 11; Blood Urea Nitrogen 9 mg/dL (7-17); Calcium 9.4 mg/dL (8.4-10.2); Hemolysis Index 1
--- NOTE | 2020-09-05 14:06 | Ultrasound Report ---
US pelvic complete INDICATION / CLINICAL INFORMATION: pelvic pain COMPARISON: CT abdomen/pelvis dated 02/17/2019. TECHNIQUE: Multiple sonographic images of the pelvis were obtained and assessed for grayscale appeara nce and color Doppler flow. FINDINGS: The uterus measures 7.3 x 3.0 x 4.1 cm and is normal in echogenicity. The endometrial stripe measures 0.3 cm in thickness. The uterus is retroverted. The right ovary measures 2.3 x 2.0 x 2.1 cm and is normal in echogenicity. The left ovary measures 2.3 x 1.9 x 1.8 cm and is normal in echogenicity. There is trace free fluid in the cul-de-sac. 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 IMPRESSION: 1. No significant sonographic abnormality. 2. Left pelvic kidney. Signer Name: Keny Holman MD Signed: 09/05/2020 2:02 PM Workstation Name: [id number]
[2020-09-05 14:37] VITALS: BP 140/78
== END 2020-09-05 14:37 | disposition home or self-care (01) ==
LOC: ED 10:30
DX: R10.2 Pelvic and perineal pain (principal); J45.909 Unspecified asthma, uncomplicated; F17.200 Nicotine dependence, unspecified, uncomplicated; Z90.49 Acquired absence of other specified parts of digestive tract; Z79.899 Other long term (current) drug therapy
CPT/HCPCS: 36415; 76856; 80053; 81001; 83690; 84702; 85025

== ENCOUNTER 2021-09-01 09:02 | Emergency (ER) | payer OTHER ==
[2021-09-01] MEDS ORDERED: ONDANSETRON 4 MG/2 ML INJ IV ONE (09:53)
[2021-09-01] MEDS ORDERED: SODIUM CHLORIDE 0.9% 1000 ML 1,000 ML IV ONE (09:53)
--- NOTE | 2021-09-01 10:06 | Emergency Department Report ---
ED Abdominal Pain HPI - General Chief Complaint: Abdominal Pain Stated Complaint: UPPER ABD PAIN,VOMITTING Time Seen by Provider: 09/01/21 09:51 Source: patient Mode of arrival: Ambulatory Limitations: No Limitations - History of Present Illness Initial Comments: 20-year-old -[place] female presents to the emergency room complaining of epigastric pain that is burning that started on Monday. Patient states that she had been drinking alcohol on Monday and felt that it was from that. She was having nausea and vomiting. She states on Monday she was still continued to have nausea and vomiting and took a BC powder without resolution of pain. She states yesterday she was still having nausea and vomiting and was told by her mom she needs to come to the emergency room. Patient presents here with epigastric pain with nausea vomiting and burning to her stomach. She reports she has had a appendectomy in 2019. She reports some mild shortness of breath. Denies any fever chills no chest pain. Primary care provider she does not have. Currently has no known drug allergies. Pains a 7 out of 10. It is nonradiating. MD Complaint: abdominal pain Onset/Timin -: days(s) Location: epigastric Radiation: none Migration to: no migration Severity scale (0 -10): 8 Quality: sharp, burning Consistency: constant Improves With: nothing Worsens With: eating Associated Symptoms: nausea, vomiting, constipation (No stools since Monday) - Related Data Previous Rx's Medication Instructions Recorded Last Taken Type HYDROcodone/APAP 5-325 [[place] 2 each PO Q6H PRN #30 tablet 02/18/19 Unknown Rx 5-325 mg TAB] Naproxen 500 mg PO Q8H PRN #20 tablet 07/01/19 Unknown Rx Dicyclomine [Bentyl] 10 mg PO QID PRN #12 capsule 09/01/21 Unknown Rx Ondansetron [Zofran Odt] 4 mg PO Q8HR PRN #12 tab.rapdis 09/01/21 Unknown Rx Allergies Allergy/AdvReac Type Severity Reaction Status Date / Time No Known Allergies Allergy Verified 09/01/21 09:29 ED Review of Systems ROS: Stated complaint: UPPER ABD PAIN,VOMITTING Other details as noted in HPI Comment: All other systems reviewed and negative ED Past Medical Hx - Past Medical History Hx Congestive Heart Failure: No Hx Diabetes: No Hx Sickle Cell Disease: No Hx Asthma: Yes Hx COPD: No Hx HIV: No Additional medical history: PNEUMONIA - Surgical History Hx Appendectomy: Yes - Social History Smoking Status: Current Every Day Smoker Substance Use Type: Alcohol - Medications Home Medications: Home Medications Medication Instructions Recorded Confirmed Last Taken Type HYDROcodone/APAP 5-325 [[place] 2 each PO Q6H PRN #30 tablet 02/18/19 Unknown Rx 5-325 mg TAB] Naproxen 500 mg PO Q8H PRN #20 tablet 07/01/19 Unknown Rx Dicyclomine [Bentyl] 10 mg PO QID PRN #12 capsule 09/01/21 Unknown Rx Ondansetron [Zofran Odt] 4 mg PO Q8HR PRN #12 tab.rapdis 09/01/21 Unknown Rx ED Physical Exam - General Limitations: No Limitations General appearance: alert, in no apparent distress - Head Head exam: Present: atraumatic, normocephalic - Eye Eye exam: Present: normal appearance - ENT ENT exam: Present: mucous membranes moist, normal external ear exam - Neck Neck exam: Present: normal inspection, full ROM - Respiratory Respiratory exam: Present: normal lung sounds bilaterally. Absent: respiratory distress, accessory muscle use - Cardiovascular Cardiovascular Exam: Present: regular rate - GI/Abdominal GI/Abdominal exam: Present: soft, tenderness, normal bowel sounds. Absent: guarding, rebound - Back Exam Back exam: Present: normal inspection - Neurological Exam Neurological exam: Present: alert, oriented X3 - Psychiatric Psychiatric exam: Present: normal affect, normal mood - Skin Skin exam: Present: warm, dry, intact, normal color. Absent: rash ED Course Vital Signs 09/01/21 09/01/21 09:28 13:22 Temperature 98.9 F 98.6 F Pulse Rate 71 68 Respiratory 14 14 Rate Blood Pressure 133/77 108/49 [Left] O2 Sat by Pulse 100 100 Oximetry ED Medical Decision Making - Lab Data Result diagrams: 09/01/21 09:58 09/01/21 09:58 Lab Results 09/01/21 09/01/21 09/01/21 Range/Units 09:58 09:58 09:58 WBC 4.7 (4.5-11.0) K/mm3 RBC 5.13 H (3.65-5.03) M/mm3 Hgb 14.0 (10.1-14.3) gm/dl Hct 45.0 H (30.3-42.9) % MCV 88 (79-97) fl MCH 27 L (28-32) pg MCHC 31 (30-34) % RDW 13.5 (13.2-15.2) % Plt Count 289 (140-440) K/mm3 Lymph % (Auto) 34.4 (13.4-35.0) % [place] % (Auto) 11.7 H (0.0-7.3) % Eos % (Auto) 3.8 (0.0-4.3) % Baso % (Auto) 0.8 (0.0-1.8) % Lymph # (Auto) 1.6 (1.2-5.4) K/mm3 [place] # (Auto) 0.5 (0.0-0.8) K/mm3 Eos # (Auto) 0.2 (0.0-0.4) K/mm3 Baso # (Auto) 0.0 (0.0-0.1) K/mm3 Seg Neutrophils % 49.3 (40.0-70.0) % Seg Neutrophils # 2.3 (1.8-7.7) K/mm3 Sodium 141 (137-145) mmol/L Potassium 4.9 (3.6-5.0) mmol/L Chloride 104.1 (98-107) mmol/L Carbon Dioxide 25 (22-30) mmol/L Anion Gap 17 mmol/L BUN 9 (7-17) mg/dL Creatinine 0.7 (0.6-1.2) mg/dL Estimated GFR > 60 ml/min BUN/Creatinine Ratio 13 % Glucose 93 (65-100) mg/dL Calcium 9.4 (8.4-10.2) mg/dL Total Bilirubin 0.20 (0.1-1.2) mg/dL AST 19 (5-40) units/L ALT 12 (7-56) units/L Alkaline Phosphatase 64 (35-129) units/L Total Protein 7.6 (6.3-8.2) g/dL Albumin 4.8 (3.9-5) g/dL Albumin/Globulin Ratio 1.7 % Lipase 14 (13-60) units/L Urine Color (Yellow) Urine Turbidity (Clear) Urine pH (5.0-7.0) Ur Specific [place] (1.003-1.030) Urine Protein (Negative) mg/dL Urine Glucose (UA) (Negative) mg/dL Urine Ketones (Negative) mg/dL Urine Blood (Negative) Urine Nitrite (Negative) Urine Bilirubin (Negative) Urine Urobilinogen (<2.0) mg/dL Ur Leukocyte Esterase (Negative) Urine WBC (Auto) (0.0-6.0) /HPF Urine RBC (Auto) (0.0-6.0) /HPF U Epithel Cells (Auto) (0-13.0) /HPF Urine Bacteria (Auto) (Negative) /HPF Calcium Oxalate Crystal Urine Mucus /HPF Urine HCG, Qual (Negative) 09/01/21 09/01/21 Range/Units Unknown Unknown WBC (4.5-11.0) K/mm3 RBC (3.65-5.03) M/mm3 Hgb (10.1-14.3) gm/dl Hct (30.3-42.9) % MCV (79-97) fl MCH (28-32) pg MCHC (30-34) % RDW (13.2-15.2) % Plt Count (140-440) K/mm3 Lymph % (Auto) (13.4-35.0) % [place] % (Auto) (0.0-7.3) % Eos % (Auto) (0.0-4.3) % Baso % (Auto) (0.0-1.8) % Lymph # (Auto) (1.2-5.4) K/mm3 [place] # (Auto) (0.0-0.8) K/mm3 Eos # (Auto) (0.0-0.4) K/mm3 Baso # (Auto) (0.0-0.1) K/mm3 Seg Neutrophils % (40.0-70.0) % Seg Neutrophils # (1.8-7.7) K/mm3 Sodium (137-145) mmol/L Potassium (3.6-5.0) mmol/L Chloride (98-107) mmol/L Carbon Dioxide (22-30) mmol/L Anion Gap mmol/L BUN (7-17) mg/dL Creatinine (0.6-1.2) mg/dL Estimated GFR ml/min BUN/Creatinine Ratio % Glucose (65-100) mg/dL Calcium (8.4-10.2) mg/dL Total Bilirubin (0.1-1.2) mg/dL AST (5-40) units/L ALT (7-56) units/L Alkaline Phosphatase (35-129) units/L Total Protein (6.3-8.2) g/dL Albumin (3.9-5) g/dL Albumin/Globulin Ratio % Lipase (13-60) units/L Urine Color Yellow (Yellow) Urine Turbidity Slightly-cloudy (Clear) Urine pH 6.0 (5.0-7.0) Ur Specific [place] 1.020 (1.003-1.030) Urine Protein <15 mg/dl (Negative) mg/dL Urine Glucose (UA) Neg (Negative) mg/dL Urine Ketones Neg (Negative) mg/dL Urine Blood Neg (Negative) Urine Nitrite Neg (Negative) Urine Bilirubin Neg (Negative) Urine Urobilinogen 2.0 (<2.0) mg/dL Ur Leukocyte Esterase Neg (Negative) Urine WBC (Auto) 2.0 (0.0-6.0) /HPF Urine RBC (Auto) 2.0 (0.0-6.0) /HPF U Epithel Cells (Auto) 6.0 (0-13.0) /HPF Urine Bacteria (Auto) 1+ (Negative) /HPF Calcium Oxalate Crystal Few Urine Mucus 3+ /HPF Urine HCG, Qual Negative (Negative) - Medical Decision Making 20-year-old -[place] female presents to the emergency room complaining of epigastric pain that is burning that started on Monday. Patient states that she had been drinking alcohol on Monday and felt that it was from that. She was having nausea and vomiting. She states on Monday she was still continued to have nausea and vomiting and took a BC powder without resolution of pain. She states yesterday she was still having nausea and vomiting and was told by her mom she needs to come to the emergency room. Patient presents here with epigastric pain with nausea vomiting and burning to her stomach. She reports she has had a appendectomy in 2019. She reports some mild shortness of breath. Denies any fever chills no chest pain. Primary care provider she does not have. Currently has no known drug allergies. Pains a 7 out of 10. It is nonradiating. Labs CBC CMP lipase urinalysis urine test INT normal saline Zofran Critical care attestation.: If time is entered above; I have spent that time in minutes in the direct care of this critically ill patient, excluding procedure time. ED Disposition Clinical Impression: Epigastric abdominal pain Disposition: 01 HOME / SELF CARE / HOMELESS Is pt being admited?: No Does the pt Need Aspirin: No Condition: Stable Instructions: Abdominal Pain (ED), Abdominal Pain, Adult, [id number] Additional Instructions: Your labs are stable. Prescriptions: Dicyclomine [Bentyl] 10 mg PO QID PRN #12 capsule PRN Reason: Pain , Severe (7-10) Ondansetron [Zofran Odt] 4 mg PO Q8HR PRN #12 tab.rapdis PRN Reason: Nausea And Vomiting Referrals: PRIMARY CARE, [Primary Care Provider] - 3-5 Days Your, primary care provider [Other] - 3-5 Days Forms: Work/School Release Form(ED) Time of Disposition: 14:48
[2021-09-01 10:49] LABS: Basophils % (Auto) 0.8 % (0.0-1.8); Eosinophils # (Auto) 0.2 K/mm3 (0.0-0.4); Eosinophils % (Auto) 3.8 % (0.0-4.3); Lymphocytes # (Auto) 1.6 K/mm3 (1.2-5.4); Lymphocytes % (Auto) 34.4 % (13.4-35.0); Mean Corpuscular HGB Conc 31 % (30-34); Mean Corpuscular Volume 88 fl (79-97); Monocytes # (Auto) 0.5 K/mm3 (0.0-0.8); Monocytes % (Auto) 11.7 % (0.0-7.3); Platelet Count 289 K/mm3 (140-440); Red Blood Count 5.13 M/mm3 (3.65-5.03); Red Cell Distribution Width 13.5 % (13.2-15.2)
[2021-09-01 11:20] LABS: HCG Qualitative,Urine Negative (Negative)
[2021-09-01 11:28] LABS: Bacteria,Urine 1+ /HPF (Negative); Bilirubin,Urine NEG (Negative); Blood,Urine NEG (Negative); Calcium Oxalate Crystals,Urine FEW; Color,Urine Yellow (Yellow); Mucus,Urine 3+ /HPF; Protein,Urine <15 mg/dL mg/dL (Negative)
[2021-09-01 13:10] LABS: Alanine Aminotransferase 12 units/L (7-56); Albumin 4.8 g/dL (3.9-5); Blood Urea Nitrogen 9 mg/dL (7-17); Calcium 9.4 mg/dL (8.4-10.2); Hemolysis Index 9
[2021-09-01 13:25] VITALS: BP 108/49
[2021-09-01 13:43] LABS: BUN/Creatinine Ratio 13
[2021-09-01] MEDS ORDERED: ONDANSETRON 4 MG ODT TAB PO ONE (14:52)
== END 2021-09-01 15:11 | disposition home or self-care (01) ==
LOC: ED 09:02
DX: R10.13 Epigastric pain (principal); J45.909 Unspecified asthma, uncomplicated; F17.200 Nicotine dependence, unspecified, uncomplicated
CPT/HCPCS: 36415; 80053; 81001; 81025; 83690; 85025; 96361; 96374; 99283; J2405; J7030; J3490; Q0162